=== PATIENT | female | born 1945 | race Caucasian/White ===

== ENCOUNTER 2024-10-16 10:53 | Emergency (ER) | payer MEDICARE, SELFPAY ==
[2024-10-16 11:01] VITALS: BP 110/76; PULSE 116; RESP 20; TEMP 36.7; O2SAT 95; BMI 26.6
--- NOTE | 2024-10-16 11:07 | XR_ITS ---
Examination: AP chest single view Technique one AP portable semiupright chest single view Exam date and time: October 16, 2024 1140 hrs. Comparison 05/08/2024 Indications: Chest pain radiating to left arm today Findings: Normal heart size. Lungs are clear. Mild to moderate thoracic dextroscoliosis Impression: No active disease
--- NOTE | 2024-10-16 11:08 | EKG_ITS ---
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
[2024-10-16 11:28] VITALS: PULSE 112; RESP 18; O2SAT 98
[2024-10-16 11:54] LABS: Basophils # (Auto) 0.1 Thou/mm3 (0.0-0.2); Basophils % (Auto) 0 % (0-2.5); Eosinophils # (Auto) 0.3 Thou/mm3 (0.0-0.5); Eosinophils % (Auto) 3 % (0-10); Hematocrit 43.2 % (36.0-46.0); Hemoglobin 14.4 g/dL (12.0-16.0); Immature Granulocytes % (Auto) 0 % (0-0); Immature Granulocytes Auto 0.04 Thou/mm3 (0.00-0.00); Lymphocytes # (Auto) 3.1 Thou/mm3 (1.0-4.8); Lymphocytes % (Auto) 26 % (10-50); Mean Corpuscular HGB Conc 33.3 g/dl (31.0-37.0); Mean Corpuscular Hemoglobin 30.4 pg (25.0-35.0); Mean Corpuscular Volume 91 fL (80-100); Monocytes % (Auto) 8 % (0-12); Neutrophils # (Auto) 7.7 Thou/mm3 (1.8-7.7); Neutrophils % (Auto) 63 % (37-80); Nucleated Red Blood Cell % 0 /100 WBC (0); Platelet Count 285 Thou/mm3 (140-440); RDW Standard Deviation 43.8 fL (36.4-46.3); Red Blood Count 4.73 Miln/mm3 (4.00-5.20); White Blood Count 12.2 Thou/mm3 (3.6-11.0)
[2024-10-16 12:13] LABS: Partial Thromboplastin Time 25.1 Seconds (22.0-36.0); Prothrombin Time 10.8 Seconds (9.0-12.2)
[2024-10-16 12:21] LABS: B-Type Natriuretic Peptide < 20 pg/mL (0-100)
[2024-10-16 12:24] LABS: Alanine Aminotransferase 11 U/L (10-49); Albumin/Globulin Ratio 1.4 (1.2-2.2); Alkaline Phosphatase 70 U/L (46-116); Anion Gap 10 (7-16); Aspartate Amino Transferase 11 U/L (0-34); BUN/Creatinine Ratio 16 Ratio (12-20); Bilirubin,Total 0.7 mg/dL (0.3-1.2); Blood Urea Nitrogen 18 mg/dL (9-23); Calcium 9.7 mg/dL (8.3-10.6); Calcium (Corrected) 9.7 mg/dL (8.5-10.1); Carbon Dioxide 26.9 mMol/L (20.0-31.0); Chloride 102 mMol/L (98-107); Creatinine (Component) 1.1 mg/dL (0.6-1.3); Estimated Creatinine Clearance 44.4 mL/min (>60); Globulin 2.9 gm/dL (2.3-3.5); Glucose 188 mg/dL (74-106); LDH (Lactate Dehydrogenase) 134 U/L (120-246); Magnesium 1.8 mg/dL (1.6-2.6); Osmolality,Calculated 284 (275-295); Potassium 4.4 mMol/L (3.4-5.1); Sodium 139 mMol/L (136-145); Total Protein 6.9 gm/dL (5.7-8.2); Troponin I < 0.002 ng/mL (0.0-0.045); eGFR 51 See Note
[2024-10-16 12:26] VITALS: BP 111/71; PULSE 103; RESP 18; TEMP 36.4; O2SAT 95
[2024-10-16] MEDS: SODIUM CHLORIDE 0.9% 500 ML 500 ML 999 ML IV (12:27)
[2024-10-16 13:22] LABS: Collection Type, Urine Clean Catch
--- NOTE | 2024-10-16 13:22 | PC.NURSE ---
PT STATES SHE WAS WALKING AROUND THE [place] WHEN SHE BECAME DIZZY, AND HAD TO SIT DOWN, SHE THEN BEGAN HAVING A PRESSURE TO HER CHEST WHERE SHE STATED THAT IT FELT IF SOMEONE WAS SITTING ON HER CHEST, THEN THERE WAS SHARP PAINS COMING FROM UNDER HER ARM TO HER CHEST. AT BEDSIDE. SON WOULD LIKE TO BE PRESENT WHEN TALKING TO PT ABOUT RESULTS SO HE KNOWS THE PLAN HAS DEMENTIA. PROVIDER AWARE OF THIS. WILL CONTINUE W/POC
[2024-10-16 13:36] LABS: Bacteria,Urine 4+; Bilirubin,Urine Negative (Negative); Blood,Urine 1+ (Negative); Color,Urine Yellow (Lt Yel-Yel); Glucose, Urine Trace (Negative); Hyaline Casts,Urine 1 /hpf (0-1); Ketones,Urine Negative (Negative); Leukocyte Esterase,Urine Positive (Negative); Nitrite,Urine Negative (Negative); PH,Urine 5.5 (5.0-7.0); Protein,Urine 1+ (Neg - Trace); RBC,Urine 38 /hpf (0-3); Specific Gravity,Urine 1.028 (1.001-1.035); Squamous Epithelial Cell,Urine 32 /hpf (0-5); Urobilinogen,Urine Negative mg/dL (0.0-1.0); WBC,Urine 83 /hpf (0-5)
--- NOTE | 2024-10-16 13:37 | PC.NURSE ---
PROVIDER TO BEDSIDE TO UPDATE SON AT THIS TIME.
[2024-10-16 13:41] LABS: Amphetamine/Methamp Scrn,U Negative (Negative); Barbiturate Screen,Urine Negative (Negative); Benzodiazepines Screen,Urine Negative (Negative); Benzoylecgonine Screen, Ur Negative (Negative); Clarity,Urine Cloudy (Clear/Hazy); Fentanyl Screen,Urine Negative (Negative); Opiate Screen,Urine Negative (Negative); THC Screen,Urine Negative (Negative)
[2024-10-16 14:51] VITALS: BP 120/79; PULSE 89; RESP 18; TEMP 36.5; O2SAT 98
[2024-10-16 15:24] LABS: Troponin I < 0.002 ng/mL (0.0-0.045)
[2024-10-16] MEDS: CIPROFLOXACIN HCL 250 MG TABLET 500 MG PO (16:06)
[2024-10-16 16:09] VITALS: BP 145/84; PULSE 97; RESP 16; TEMP 36.4; O2SAT 95
== END 2024-10-16 16:15 | disposition home or self-care (01) ==
PROVIDERS: Registered Nurse General Practice; Emergency Provider Emergency Medicine; PCP Internal Medicine
DX: R07.9 Chest pain, unspecified (principal); E11.9 Type 2 diabetes mellitus without complications; I10 Essential (primary) hypertension; E03.9 Hypothyroidism, unspecified
CPT/HCPCS: 36415; 71045; 80053; 80307; 81001; 83615; 83735; 83880; 84484; 85025; 85610; 85730; 93005; 96360; 99284; J7040; A9270